=== PATIENT | female | born 1980 | race Caucasian/White ===

== ENCOUNTER 2024-07-30 16:53 | Emergency (ER) | payer OTHER ==
[~2024-07-30] VITALS: Ht 160 cm; Wt 99.8 kg
[2024-07-30 16:57] VITALS: BP 135/93; TEMP 98.3; O2SAT 99
[2024-07-30] MEDS ORDERED: CIPR7.5D9 LEFT EAR (18:14)
[2024-07-30] MEDS ORDERED: LIDO20SO13 PO (18:14)
== END 2024-07-30 19:20 | disposition home or self-care (01) ==
LOC: ER 16:56
DX: H92.02 Otalgia, left ear (principal); J02.9 Acute pharyngitis, unspecified; I10 Essential (primary) hypertension